=== PATIENT | female | born 1965 | race Caucasian/White ===

== ENCOUNTER 2016-12-19 13:11 | Emergency (ER) | payer BC ==
[2016-12-19 13:35] VITALS: BP 130/83
--- NOTE | 2016-12-19 14:46 | UC ---
Hand/Wrist HPI - HPI Summary HPI Summary: 51 female presents with complaints of right index finger discomfort, palpable nodule and intermittent numbness/tingling of her 1-3 right digits that has been ongoing for the past month. Patient has a history of a pinched nerve in her neck that caused similar symptoms in her left arm/hand in the past however, she states this has been more frequent and worse. She is right hand dominant and using a computer mouse often throughout her work day. States the numbness/ tingling in her fingers gets worse at night, as it wakes her up from her sleep. The episodes last about a few minutes to an hour. Has tried taking aleve in the past and does get some relief from discomfort. She notices when she uses her index finger more the pain increases. She noticed a palpable bump on her DIP approximately one month ago that is not tender to touch. 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 Similar symptoms in the past but not to this extent. No loss of ROM. Denies chest pain/difficulty breathing. Denies paresthesia of forearm or proximal arm. - History Of Current Complaint Chief Complaint: UCUpperExtremity Stated Complaint: finger pain/numbness Time Seen by Provider: 12/19/16 14:25 Hx Obtained From: Patient Hx Last Menstrual Period: 2003 ?: No Onset/Duration: Sudden Onset Severity Initially: Mild Severity Currently: Mild Pain Intensity: 3 Pain Scale Used: 0-10 Numeric Character Of Pain: Aching Aggravating Factor(s): Movement Alleviating: Rest, Ice, OTC Meds Associated Signs And Symptoms: Positive: Swelling - minimal Related History: Dominant Hand Right - Allergies/Home Medications Allergies/Adverse Reactions: Allergies Allergy/AdvReac Type Severity Reaction Status Date / Time Hydromorphone [From Dilaudid] Allergy Unknown Unknown Verified 12/19/16 13:30 Reaction Details Penicillin G Allergy Unknown Unknown Verified 12/19/16 13:30 Reaction Details Home Medications: Home Medications Fluticasone/Vilanterol MDI(NF) [Breo Ellipta MDI (NF)] 1 puff INH DAILY [History Confirmed 12/19/16] Lansoprazole [Goodsense Lansoprazole] 15 mg PO DAILY 12/19/16 [History Confirmed 12/19/16] PMH/Surg Hx/FS Hx/Imm Hx Endocrine History Of: Reports: Diabetes - po med Denies: Thyroid Disease Cardiovascular History Of: Denies: Cardiac Disorders, Hypertension, Pacemaker/ICD Respiratory History Of: Reports: Asthma Denies: COPD GI/ History Of: Denies: Ulcer Psychological History Of: Reports: Depression Cancer History Of: Denies: Breast Cancer - Surgical History Surgical History: Yes Surgery Procedure, Year, and Place: HYSTERECTOMY, 2003 - Family History Known Family History: Positive: Unknown, Diabetes - Social History Alcohol Use: Occasionally Substance Use Type: None Smoking Status (MU): Never Smoked Tobacco - Immunization History Vaccination Up to Date: Yes Review of Systems Constitutional: Negative Skin: Negative Respiratory: Negative Cardiovascular: Negative Gastrointestinal: Negative, Abdominal Pain Genitourinary: Negative Motor: Negative Neurovascular: Negative Musculoskeletal: Arthralgia, Myalgia - right index Neurological: Negative, Paresthesia - of digits 1-3 right hand intermittently Psychological: Negative All Other Systems Reviewed And Are Negative: Yes Physical Exam Triage Information Reviewed: Yes Appearance: Well-Appearing, No Pain Distress, Well-Nourished Vital Signs: Initial Vital Signs Temp 98 F 12/19/16 13:22 Pulse 94 12/19/16 13:22 Resp 24 12/19/16 13:22 BP 130/83 12/19/16 13:22 Vital Signs Reviewed: Yes Eyes: Positive: Conjunctiva Clear ENT: Positive: Normal ENT inspection, Hearing grossly normal Neck: Positive: Supple, Nontender, No Lymphadenopathy Respiratory: Positive: Chest non-tender, Lungs clear, Normal breath sounds, No respiratory distress, No accessory muscle use Cardiovascular Exam: Normal Cardiovascular: Positive: RRR, No Murmur, Pulses Normal, Brisk Capillary Refill Abdominal Exam: Normal Musculoskeletal: Positive: Strength Intact, ROM Intact, No Edema. Negative: Strength Limited @ Neurological Exam: Normal - sensation intact. pin-point sensation intact. Neurological: Positive: Alert, Muscle Tone Normal, Other: - + Tinel's sign right hand Psychological Exam: Normal Diagnostics - Radiology right index Xray Interpretation: No Acute Changes - no acute osseous injury. if symptoms persist, recommend repeat imaging. a negative report should not preclude or delay the evaluation of a clinically suscpicous palpable abnormality. Radiology Interpretation Completed By: Radiologist Hand/Wrist Course/Dx - Course Course Of Treatment: patient did not want any pain medication at this time as she is currently having an episode of GERD. She had tried using muscle relaxer and steroids with antiinflammatories OTC that have hepled her. Told she should try using cock-up splint on right wrist at night and take anti inflammatories to differnentiate carpal tunnel versus radiculopathy of right shoulder. If anti inflammatories and splint do not help, steroid and muscle relaxer. follow up at appointment with pcp thursday for possible referral and further testing/imaging. aware of worsening signs and symptoms. - Differential Dx/Diagnosis Differential Diagnosis/HQI/PQRI: Carpal Tunnel Syndrome, Contusion, Dislocation , Sprain, Strain, Tendonitis, Tenosynovitis Provider Diagnoses: right index finger pain, intermittent paresthesia of digits 1-3, possible carpal tunnel right hand Discharge - Discharge Plan Condition: Stable Disposition: HOME Prescriptions: Tizanidine HCl 4 mg PO BEDTIME #20 cap predniSONE TAB* [Deltasone TAB*] 20 mg PO DAILY #5 tab Patient Education Materials: Carpal Tunnel Syndrome (ED), Carpal Tunnel Syndrome Exercises (GEN) Referrals: Kiki De Jesus MD [Primary Care Provider] - Additional Instructions: Take prescribed muscle relaxer and steroid to help decrease inflammation and to see if symptoms resolve. Recommend taking OTC Aleve for pain and inflammation daily every 4-6 hours. Rest, ice, and recommend wearing carpal tunnel splint at work and at bedtime. See if symptoms improve. If not or worsening please be sure to seek medical attention promptly. Recommend follow up with pcp for further testing and possible referral.
--- NOTE | 2016-12-19 15:02 | RAD ---
HISTORY: Second digit pain and deformity of the right hand COMPARISONS: None VIEWS: 3, Frontal, lateral, and oblique views of the second digit of the right hand FINDINGS: BONE DENSITY: Normal. BONES: There is no displaced fracture. JOINTS: There is no arthropathy. ALIGNMENT: There is no dislocation. SOFT TISSUES: Unremarkable. OTHER FINDINGS: None. IMPRESSION: NO ACUTE OSSEOUS INJURY. IF SYMPTOMS PERSIST, RECOMMEND REPEAT IMAGING. A NEGATIVE REPORT SHOULD NOT PRECLUDE OR DELAY THE EVALUATION OF A CLINICALLY SUSPICIOUS PALPABLE ABNORMALITY
== END 2016-12-19 15:29 | disposition home or self-care (01) ==
LOC: UCCORT 13:11
DX: M79.644 Pain in right finger(s) (principal); R20.0 Anesthesia of skin; K21.9 Gastro-esophageal reflux disease without esophagitis; E11.9 Type 2 diabetes mellitus without complications; Z88.5 Allergy status to narcotic agent; Z88.0 Allergy status to penicillin
CPT/HCPCS: 73140; 99213; G0463

== ENCOUNTER 2017-04-30 07:26 | Day surgery (SDC) | payer BC ==
[2017-04-30] MEDS ORDERED: Sodium Bicarbonate 8.4%* 50 ML SYRINGE ONE (08:10)
[2017-04-30] MEDS ORDERED: Lidocaine 1.5% EPI 1:200,000* 30 ML SDV ONE (08:10)
[2017-04-30] MEDS ORDERED: Bupivacaine 0.25% SDV* 30 ML ONE (09:44)
[2017-04-30 10:18] VITALS: BP 127/69
--- NOTE | 2017-04-30 10:23 | OP ---
DATE OF OPERATION: 04/30/2017 [facility] DATE OF : 1965. SURGEON: Dr. Rell Pace. APPAREL DESIGNER: KARTIK Vicente. ANESTHESIOLOGIST: None. ANESTHESIA: Local with 1.5% Lidocaine with Epinephrine and Bicarbonate. PRE-OP DIAGNOSIS: Right carpal tunnel syndrome. POST-OP DIAGNOSIS: Right carpal tunnel syndrome. OPERATIVE PROCEDURE: Right open carpal tunnel release. INDICATIONS: Pebbles has had progressive symptoms related to right carpal tunnel syndrome. This was confirmed electrodiagnostically. We talked about risks and benefits of surgery. She elected to proceed. ESTIMATED BLOOD LOSS: 5 ml. COMPLICATIONS: None. FINDINGS: As expected. DESCRIPTION OF PROCEDURE: Pebbles was seen in the preoperative holding area. The correct site, side, and procedure were identified. We had a time-out and then I anesthetized the operative area with the local anesthetic. We waited a period of time and then we came back to the operating room where the arm was prepped and draped in the usual fashion. A formal time-out was performed. I began by making a standard, 2 to 3 cm, longitudinal incision in the normal location for an open carpal tunnel release. The dissection was carried down through the subcutaneous tissue and palmar fascia to expose the transverse carpal ligament. This was released just off the radial aspect of the hook of the hamate, starting distally and working proximally. Once I got to the proximal aspect of my incision, I released the fascia and the subcutaneous tissue and retracted this volarly and ulnarly. I then release a little bit more of the transverse carpal ligament with the 15 blade and then the remainder of the transverse carpal ligament was released under direct visualization with the tenotomy scissors just off the ulnar aspect of the palmar's longest tendon. The decompression was checked proximally. It was nicely released and when distally released a couple more bands and once I was confident there was absolutely no compression on the nerve, I went ahead and inspected the nerve. It looked flattened with a slight purple color to it. The wound was irrigated and the skin was closed with 4-0 nylon suture and 0.25% plain Marcaine was infiltrated into the operative area. The wound was dressed with Xeroform, 4x4, sterile Webril, and an Lupillo bandage. She was then taken to the recovery room in stable condition. [id number]/[facility] #: [id number] KARL
== END 2017-04-30 10:15 | disposition home or self-care (01) ==
LOC: OREAST 07:26
PROVIDERS: ATTEND Orthopaedic Surgery Hand Surgery
DX: G56.01 Carpal tunnel syndrome, right upper limb (principal); E11.9 Type 2 diabetes mellitus without complications; Z79.84 Long term (current) use of oral hypoglycemic drugs

== ENCOUNTER 2017-09-16 15:00 | Emergency (ER) | payer BC ==
--- NOTE | 2017-09-16 15:08 | UC ---
Abdominal Pain Female HPI - HPI Summary HPI Summary: 51 year old male presents with left sided chest pain. - History of Current Complaint Chief Complaint: UCAbdominalPain Stated Complaint: UPPER ABDOMINAL PAIN Time Seen by Provider: 09/16/17 15:08 Hx Obtained From: Patient Hx Last Menstrual Period: 2003 Onset/Duration: Sudden Onset Severity Initially: Moderate Severity Currently: Moderate Pain Scale Used: 0-10 Numeric - 5 Location: Discrete At: LUQ Character: Burning, Sharp Aggravating Factor(s): Nothing Alleviating Factor(s): Nothing Associated Signs and Symptoms: Positive: Negative Allergies/Adverse Reactions: Allergies Allergy/AdvReac Type Severity Reaction Status Date / Time Hydromorphone [From Dilaudid] Allergy Unknown Unknown Verified 09/16/17 15:06 Reaction Details Penicillin G Allergy Unknown Unknown Verified 09/16/17 15:06 Reaction Details Home Medications: Home Medications Pantoprazole Sodium [Protonix] 20 mg PO DAILY 09/16/17 [History Confirmed ] PMH/Surg Hx/FS Hx/Imm Hx Previously Healthy: Yes - Surgical History Surgical History: Yes Surgery Procedure, Year, and Place: HYSTERECTOMY, 2003 - Family History Known Family History: Positive: Unknown, Diabetes - Social History Alcohol Use: Occasionally Substance Use Type: None Smoking Status (MU): Never Smoked Tobacco - Immunization History Vaccination Up to Date: Yes Review of Systems Constitutional: Negative Skin: Negative Eyes: Negative ENT: Negative Respiratory: Negative Cardiovascular: Chest Pain Gastrointestinal: Abdominal Pain Genitourinary: Negative Motor: Negative Neurovascular: Negative Musculoskeletal: Negative Neurological: Negative Psychological: Negative All Other Systems Reviewed And Are Negative: Yes Physical Exam Triage Information Reviewed: Yes Vital Signs: Initial Vital Signs Temp 36.4 C 09/16/17 15:02 Pulse 81 09/16/17 15:02 Resp 18 09/16/17 15:02 BP 151/98 09/16/17 15:02 Pulse Ox 100 09/16/17 15:02 Vital Signs Reviewed: Yes Eye Exam: Normal ENT Exam: Normal Dental Exam: Normal Neck exam: Normal Neck: Positive: 1 Respiratory Exam: Normal Cardiovascular Exam: Normal Abdomen Description: Positive: Other: - epigastric pain Musculoskeletal Exam: Normal Neurological Exam: Normal Psychological Exam: Normal Skin Exam: Normal Abd Pain Female Course/Dx - Differential Dx/Diagnosis Provider Diagnoses: left sided chest pain. epigastric pain Discharge - Discharge Plan Condition: Stable Disposition: OTHER Discharge Disposition Comment: patient suggested to go to the er Patient Education Materials: Chest Pain (ED) Referrals: Kiki De Jesus MD [Primary Care Provider] - Additional Instructions: patient suggested to go to the er for left sided chest pain
[2017-09-16 15:23] VITALS: BP 144/85
== END 2017-09-16 15:33 ==
LOC: UCCORT 15:00
DX: R07.9 Chest pain, unspecified (principal); R10.13 Epigastric pain; Z72.89 Other problems related to lifestyle
CPT/HCPCS: 93005; 99212; G0463

== ENCOUNTER 2017-10-01 10:51 | Emergency (ER) | payer BC ==
--- NOTE | 2017-10-01 11:11 | UC ---
Respiratory Complaint HPI - HPI Summary HPI Summary: 52 year old female with cough. For the past week or more has had cough and chest congestion. No fever. Cough productive in the AM and clears up throughout the day. DM-2 and BS stable. No CP or PRESSLEY. Has had GERD and now on PPI and awaiting endoscopy . No n/v/d. Has had sinus pressure in the frontal and maxillary sinuses as well as ear pressure and some sore throat. Developed hoarse voice 4 days ago. Was getting better about 3 days ago and now worsening. Not sleeping from the cough. Has history of asthma and using Breo and prn GILMA. - History of Current Complaint Chief Complaint: UCGeneralIllness Stated Complaint: COUGH Time Seen by Provider: 10/01/17 11:07 Hx Obtained From: Patient Hx Last Menstrual Period: 2003 Onset/Duration: Gradual Onset Timing: Constant Severity Initially: Moderate Character: Cough: Productive - in AM Alleviating Factors: Bronchodilator Associated Signs And Symptoms: Positive: Sinus Discomfort - Allergies/Home Medications Allergies/Adverse Reactions: Allergies Allergy/AdvReac Type Severity Reaction Status Date / Time Hydromorphone [From Dilaudid] Allergy Unknown Unknown Verified 10/01/17 11:01 Reaction Details Penicillin G Allergy Unknown Unknown Verified 10/01/17 11:01 Reaction Details PMH/Surg Hx/FS Hx/Imm Hx Previously Healthy: Yes Endocrine History: Diabetes Respiratory History: Asthma GI/ History: Gastroesophageal Reflux Psychological History: Anxiety, Depression - Surgical History Surgical History: Yes Surgery Procedure, Year, and Place: HYSTERECTOMY, 2003 - Family History Known Family History: Positive: Diabetes - Social History Occupation: Employed Full-time Alcohol Use: Occasionally Substance Use Type: None Smoking Status (MU): Never Smoked Tobacco - Immunization History Vaccination Up to Date: Yes Review of Systems Constitutional: Fatigue ENT: Sore Throat, Ear Ache, Nasal Discharge, Sinus Pain/Tenderness Respiratory: Cough Is Patient Immunocompromised?: No All Other Systems Reviewed And Are Negative: Yes Physical Exam Triage Information Reviewed: Yes Appearance: Well-Appearing, No Pain Distress, Well-Nourished Vital Signs: Initial Vital Signs Temp 96.4 F 10/01/17 10:55 Pulse 91 10/01/17 10:55 Resp 16 10/01/17 10:55 BP 132/92 10/01/17 10:55 Pulse Ox 99 10/01/17 10:55 Vital Signs Reviewed: Yes Eye Exam: Normal ENT Exam: Normal ENT: Positive: Nasal congestion, Sinus tenderness Dental Exam: Normal Neck exam: Normal Neck: Positive: 1 Respiratory Exam: Normal Cardiovascular Exam: Normal Musculoskeletal Exam: Normal Neurological Exam: Normal Psychological Exam: Normal Skin Exam: Normal UC Diagnostic Evaluation - Laboratory O2 Sat by Pulse Oximetry: 99 Respiratory Course/Dx - Course Course Of Treatment: URI -- treat supportively and if sx persist or worsen then start antibiotics. pt aware and agree to plan. Reference #: [id number] - Differential Dx/Diagnosis Differential Diagnosis/HQI/PQRI: Bronchitis, Lower Resp Infection, Sinusitis Provider Diagnoses: URI Discharge - Discharge Plan Condition: Good Disposition: HOME Prescriptions: Benzonatate [Benzonatate 200 MG] 200 mg PO TID #20 cap Cefdinir [Cefdinir 300 MG CAP] 300 mg PO BID #20 cap Guaifenesin-Codeine [Cheratussin AC] 5 ml PO Q8HR PRN #120 ml MDD 15 ml PRN Reason: cough Patient Education Materials: Upper Respiratory Infection (ED) Referrals: Kiki De Jesus MD [Primary Care Provider] - 4 Days (if needed ) Additional Instructions: As we discussed your symptoms appear viral at this time. Continue with supportive care and we have prescribed cough medication as well. If your symptoms worsen over the next few days with your sinus pressure or worsened cough then you are advised to start the antibiotic .
[2017-10-01 11:46] VITALS: BP 132/92
== END 2017-10-01 11:37 | disposition home or self-care (01) ==
LOC: UCCORT 10:51
DX: J06.9 Acute upper respiratory infection, unspecified (principal); R53.83 Other fatigue; E11.9 Type 2 diabetes mellitus without complications; J45.909 Unspecified asthma, uncomplicated; K21.9 Gastro-esophageal reflux disease without esophagitis; F41.9 Anxiety disorder, unspecified; F32.9 Major depressive disorder, single episode, unspecified; Z90.710 Acquired absence of both cervix and uterus; Z88.5 Allergy status to narcotic agent; Z88.0 Allergy status to penicillin
CPT/HCPCS: 99212; G0463

== ENCOUNTER 2018-02-23 06:50 | Observation (INO) | payer BC ==
--- NOTE | 2018-02-18 21:03 | HP ---
CC: Barney Morris; Hugo Art MD * ADMISSION HISTORY AND PHYSICAL: DATE OF ADMISSION: 02/23/18 ATTENDING SURGEON: Girma Crenshaw MD * (KARTIK Conway dictating). CHIEF COMPLAINT: Hiatal hernia. HISTORY OF PRESENT ILLNESS: This is a 52-year-old female with at least a 5- year history of known hiatal hernia. She is initially fairly symptom-free with little to no reflux symptoms until about a year or 2 ago when she began to experience occasional bloating with gas-like sensation and/or nausea or vomiting. The pressure would be relieved when she was able to burp and/or vomit and her symptoms would resolve. Lately, this has occurred as often as 3 to 4 times per month. An EGD was done by Dr. Art on 12/07/17 showing a large hiatal hernia (increased in size from previous EGD). This was followed by an upper GI study on 01/26/18 showing majority of the stomach in the thoracic cavity with the antrum above the diaphragm. The patient was seen by Dr. Crenshaw on 01/28/18. He has reviewed her history and studies and felt that surgery was indicated. The patient understands the indications, risks, benefits , and alternatives and would like to proceed as scheduled with repair of hiatal hernia with fundoplication. The patient understands the expected perioperative course. In addition, because of some known history of hepatic cystic disease, an ultrasound was performed on 02/10/18 showing multiple hepatic cysts as well as a small hemangioma. In addition, she was found to have gallstones, but no signs of acute cholecystitis. There is no plan at the present time for cholecystectomy. PAST MEDICAL HISTORY: Asthma, seasonal allergies, depression, anxiety, type 2 diabetes, hyperlipidemia. PAST SURGICAL HISTORY: Previous surgeries include a subtotal abdominal hysterectomy (for fibroid disease; she still has her ovaries), which was complicated by postoperative bleeding requiring return to the operating room and transfusion of 2 units. She has had prior D and Cs and in the past year, underwent right carpal tunnel release with no associated problems. CURRENT MEDICATIONS: 1. Breo 100/25 one puff once daily. 2. Fluticasone nasal spray 1 spray each nostril once daily. 3. ProAir HFA MDI 2 puffs p.r.n. 4. Chlorpheniramine 4 mg once daily p.r.n. 5. Pantoprazole 40 mg once daily. 6. Bupropion 75 mg and 150 mg (total of 225 mg) once daily. 7. Metformin 500 mg b.i.d. 8. Simvastatin 40 mg once daily. 9. Fluoxetine 20 mg once daily. 10. Vitamin D3 2000 International Units once daily. 11. Multivitamin once daily. 12. Naproxen [id number] 2 tablets p.r.n. for headache or joint pain ( uses infrequently.) ALLERGIES: DILAUDID (nausea and vomiting), AMOXICILLIN (itchy feet). FAMILY HISTORY: Positive for hiatal hernias in multiple family members. There is also a strong history of diabetes. There is no known family history of anesthesia problems, bleeding, or clotting disorders. SOCIAL HISTORY: The patient lives with her significant other. 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 She denies use of tobacco. She drinks on average 3 to 4 drinks per week. She denies other recreational drug use. REVIEW OF SYSTEMS: General: No recent constitutional symptoms or acute illnesses. Weight has been stable. Eyes: No recent changes reported. Ears, Nose, Throat: No problems reported. Cardiovascular: No chest pain, palpitations, history of heart murmur. No history of hypertension. Respiratory : No recent exacerbations of her baseline symptoms. She does note occasional difficulty taking a deep or full breath. GI: As above per HPI. No lower GI symptoms. She did undergo colonoscopy in conjunction with a recent EGD with removal of a single colon polyp and recommended followup in 5 years. : No problems reported. RESTORATION ECOLOGIST: She is due for her annual mammogram and also undergoes annual breast exam. No other problems reported. She is status post hysterectomy. She still has her cervix. Endocrine: Type 2 diabetes. Her most recent A1c was 6.5. No thyroid dysfunction. Musculoskeletal: No specific problems reported. Neuro/Psych: History of depression and anxiety. No additions. PHYSICAL EXAMINATION GENERAL: Well-nourished, well-developed female, in no acute distress. VITAL SIGNS: Height 5 feet 5 inches, weight 165 pounds. Other vital signs per nursing. HEENT: Pupils are equal and round, reactive. EOMs intact. No conjunctival pallor. Oropharynx: Teeth in good repair. No intraoral lesions. NECK: No lymphadenopathy, thyromegaly, or masses. LUNGS: Clear to auscultation. No rales or wheezes. HEART: Regular rate and rhythm. No murmur noted. BREASTS: Not examined. ABDOMEN: Pfannenstiel incision from prior surgery. Abdomen is soft, nontender to palpation. No palpable masses or organomegaly. GENITALIA: Not done. RECTAL: Not done. BACK: No spinous process or CVA tenderness. EXTREMITIES: No edema. NEUROLOGICAL: Grossly intact. SKIN: Warm and dry. No suspicious rashes or lesions. IMPRESSION: Hiatal hernia. PLAN: Laparoscopic repair, hiatal hernia with fundoplication. KARTIK CONWAY [id number]/[facility] #: [id number] MTDD
[~2018-02-23 06:50] MED LIST: Buffered Lidocaine 0.9% SYRIN* 5 ML/SYR SYRINGE INTRADERM ONE
[2018-02-23] MEDS ORDERED: ceFAZolin 2 GM PREMIX (*) 2 GM/50 ML BAG IVPB ONE (07:11)
[2018-02-23] MEDS ORDERED: Heparin VIAL(*) 5000 UNITS/ML VIAL (FIVE THOUSAND) ONE (07:19)
[2018-02-23] MEDS ORDERED: Bupivacaine 0.25% SDV* 30 ML ONE (08:27)
[2018-02-23] MEDS ORDERED: Scopolamine 1.5 mg* PATCH ONE ×2 (08:28→08:34)
[2018-02-23] MEDS ORDERED: fentaNYL* 50 MCG/ML 2 ML VIAL (100 MCG VIAL) ONE ×3 (08:44→12:45)
[2018-02-23] MEDS ORDERED: Dexamethasone IV* 4 MG/ML 1 ML (4 MG) ONE (08:45)
[2018-02-23] MEDS ORDERED: Rocuronium* 10 MG/ML VIAL ONE (08:45)
[2018-02-23] MEDS ORDERED: Propofol* 10 MG/ML 20 ML BTL IV PUSH ONE (08:45)
[2018-02-23] MEDS ORDERED: Lidocaine 2% PF * 5 ML VIAL ONE (08:45)
[2018-02-23] MEDS ORDERED: IVPREMIX ONE (08:47)
[2018-02-23] MEDS ORDERED: CLINDAMYCIN 600 MG ONE (08:47)
[2018-02-23] MEDS ORDERED: Atropine 1MG/ML INJ* 1 ML VIAL ONE (11:29)
[2018-02-23] MEDS ORDERED: Neostigmine Methylsulfate* 1 MG/ML 10 ML VIAL (1 mg/ml) ONE (11:29)
--- NOTE | 2018-02-23 11:30 | OP ---
Operative Report - Blank - Operative Report Date of Operation: 02/23/18 Note: Preop Dx: Hiatal Hernia Postop Dx: same Procedure: Laparoscopic repair hiatal hernia w/ fundoplication Anesthesia: GET ([facility]) Surgeon: Den Asst: Dirk; KARTIK Farr; SABRA De Santiago Fluids: 1800 ml RL EBL: < 50 ml Drains: none Specimen: none Findings: dictated
[2018-02-23] MEDS ORDERED: Albuterol HFA INHALER* 8 gm MDI INH PRN (11:36)
[2018-02-23] MEDS ORDERED: Acetaminophen ADULT LIQ* 650 MG/20.3 ML UDC PO PRN (11:41)
[2018-02-23] MEDS ORDERED: Morphine INJ* 10 MG/ML 1 ML CARPUJECT IV PRN (11:42)
[2018-02-23] MEDS ORDERED: Morphine INJ* 4 MG/ML 1 ML CARPUJECT IV PRN (11:42)
[2018-02-23] MEDS ORDERED: Ketorolac INJ* 30 MG/ML 1 ML VIAL IV PUSH PRN (11:42)
[2018-02-23] MEDS ORDERED: Ondansetron ODT TAB* 4 MG SL PRN (11:44)
[2018-02-23] MEDS ORDERED: fentaNYL* 50 MCG/ML 2 ML VIAL (100 MCG VIAL) IV PRN (11:51)
[2018-02-23] MEDS ORDERED: Acetaminophen TAB* 325 MG PO PRN (11:51)
[2018-02-23] MEDS ORDERED: DiMENhydriNATE IV* 50 MG/ML VIAL IV PUSH PRN (11:51)
[2018-02-23] MEDS ORDERED: Ondansetron ODT TAB* 4 MG PO PRN (11:51)
[2018-02-23] MEDS ORDERED: Naloxone* 0.4 MG/ML 1 ML VIAL IV PRN (11:51)
[2018-02-23] MEDS ORDERED: DiMENhydriNATE IV* 50 MG/ML VIAL ONE (11:57)
[2018-02-23] MEDS ORDERED: Insulin LISPRO* 1 UNITS UNIT SUBCUT ONE (12:39)
--- NOTE | 2018-02-23 12:45 | RAD ---
HISTORY: [Continue to appear, hypoxia COMPARISONS: January 23, 2012 VIEWS: 2: frontal portable view of the chest at 12:00 PM FINDINGS: LINES AND TUBES: None. CARDIOMEDIASTINAL SILHOUETTE: There is no pneumomediastinum.. PLEURA: There is a small left apical pneumothorax. LUNG PARENCHYMA: The lungs are clear. ABDOMEN: The upper abdomen is clear. There is no subphrenic gas. BONES AND SOFT TISSUES: There is extensive subcutaneous emphysema. IMPRESSION: SMALL LEFT APICAL PNEUMOTHORAX. PNEUMOMEDIASTINUM. EXTENSIVE SUBCUTANEOUS EMPHYSEMA. PRELIMINARY FINDINGS WERE DISCUSSED WITH THE NURSE CARING FOR THE PATIENT IN THE RECOVERY ROOM AT APPROXIMATELY 12:41 PM ON FEBRUARY 23, 2018.
[2018-02-23] MEDS ORDERED: EPHEDrine (Pressors)* 50 MG/ML VIAL ONE (13:22)
[2018-02-23] MEDS ORDERED: Ketorolac INJ* 30 MG/ML 1 ML VIAL ONE (14:36)
--- NOTE | 2018-02-23 15:46 | RAD ---
HISTORY: Follow-up left pneumothorax COMPARISONS: February 23, 2018 at 11:57 AM VIEWS: 1: frontal portable view of the chest at 3:34 PM FINDINGS: LINES AND TUBES: None. CARDIOMEDIASTINAL SILHOUETTE: The pneumomediastinum noted on the previous examination is no longer evident. PLEURA: The left apical pneumothorax noted on the previous examination is no longer evident. LUNG PARENCHYMA: There is a nodular density of the left lung base measuring 1.2 cm near the costophrenic angle. ABDOMEN: The upper abdomen is clear. There is no subphrenic gas. BONES AND SOFT TISSUES: There is persistent but decreased subcutaneous emphysema. IMPRESSION: 1. THE LEFT APICAL PNEUMOTHORAX IS NO LONGER EVIDENT. 2. THE PNEUMOMEDIASTINUM IS NO LONGER EVIDENT. 3. THERE IS PERSISTENT BUT DECREASED SUBCUTANEOUS EMPHYSEMA. 4. THERE IS A NODULE OF THE LEFT LUNG BASE. RECOMMEND ATTENTION ON FOLLOW-UP IMAGING, AND CONSIDERATION OF CT OF THE CHEST IN THE NONACUTE SETTING.
--- NOTE | 2018-02-23 15:56 | PN ---
Progress Note - Progress Note Date of Service: 02/23/18 Note: Postop Note She feels well except for bilateral shoulder pain. I discussed the concern for PTX and the CXR done in the RR. She denies SOB, CP. Vital Signs Temp 99.0 F 02/23/18 13:45 Pulse 70 02/23/18 13:45 Resp 26 02/23/18 13:48 BP 115/75 02/23/18 13:45 Pulse Ox 97 02/23/18 13:45 Gen: NAD Chest: +equal BS bilat; subcutaneous crepitus noted. Intake & Output 02/22/18 02/23/18 02/23/18 18:59 06:59 18:59 Intake Total 1950 Output Total 1100 Balance 850 Weight 172 lb Intake: IV Fluids 1950 ANCEF 2 GMS 50 LR 1900 Output: Urine 400 Kaminski 600 Estimated Blood Loss 100 Other: # Voids 1 portable CXR shows improved PTX and subcutaneous emphysema. A/P: s/p lap PEHR. Resolving carbothorax. Continue observation. Likely home in AM.
[2018-02-23] MEDS: Morphine VIAL* 4 MG/ML VIAL (1 ml vial) IV PRN ×3 (16:10→21:46)
[2018-02-24] MEDS: Morphine VIAL* 4 MG/ML VIAL (1 ml vial) IV PRN ×2 (01:57→05:43)
[2018-02-24 08:15] VITALS: BP 117/63
[2018-02-24] MEDS ORDERED: Fluticasone NASAL SPRAY 50MCG* 16 gm SPRAY BTL BOTH NARES SCH (09:00)
[2018-02-24] MEDS ORDERED: Fluticasone/Vilanterol MDI(NF) 100/25 MDI INH SCH (09:00)
--- NOTE | 2018-02-24 09:01 | PN ---
Progress Note - Progress Note Date of Service: 02/24/18 SOAP: Subjective: []Pt seen and examined at bedside. Pt s/p laparoscopic hiatal hernia repair with fundoplication complicated by small carbothorax. Pt reports she is "doing well." Slept well throughout the night. Received morphine PRN overnight for bilateral shoulder pain. Reports 4/10 supraumbilical pain that is controlled with Toradol (last dose @ 0818 02/24) and Morphine (last dose @0543 02/24). Reports pain with deep inspiration. Reports mild abdominal distention. Reports flatus. Denies N/V/D. No BMs as of yet. Patient is wearing scopolamine patch. Is tolerating sips of water. Would like to try more clears (apple juice). Denies chest pain or SOB. Reports using incentive spirometry when she can. Pt was able to ambulate 3x around unit yesterday. Voiding regularly. No dysuria or hematuria. Denies calf pain or swelling. Objective: [] Vital Signs 02/24/18 02/24/18 02/24/18 01:57 03:00 04:07 Temperature 99.4 F Pulse Rate 78 Respiratory 16 16 14 Rate Blood Pressure 116/69 (mmHg) O2 Sat by Pulse 95 Oximetry 02/24/18 02/24/18 02/24/18 05:43 06:38 07:11 Temperature 98.1 F Pulse Rate 71 Respiratory 16 14 17 Rate Blood Pressure 117/63 (mmHg) O2 Sat by Pulse 97 Oximetry 02/24/18 02/24/18 08:00 08:14 Temperature Pulse Rate Respiratory 17 Rate Blood Pressure (mmHg) O2 Sat by Pulse 94 94 Oximetry Const: Well apearing female resting comfortably supine in bed. Pt is in NAD. HEENT: Minimal periorbital edema (improved from yesterday 02/23). EOMs grossly intact. Lungs: Respirations are non labored. Symmetric chest expansion. Faint rales in RLL. Remaining lungs are CTA. Heart: RRR. Regular S1. Regular S2. No murmurs/rubs/gallop. Chest: Subcutaneous crepitus no longer present on anterior chest wall. Crepitus noted along the shoulders bilaterally. Ext: Warm. No swelling. 2+ dorsalis pedis pulses. Assessment: []S/p laparoscopic hiatal hernia repair c/ fundoplication complicated by small carbothorax. Pt doing well. Carbothorax is improving as shown on portable CXR 02/23/18. Pt is afebrile. No SOB/CP. VSS. Plan: [Okay to advance diet to clear liquids. Encouraged ambulation and incentive spirometry. Continue observation. If patient does well with clear liquids okay to go home today. Discussed findings/plan with patient at bedside. Discussed with Dr. Crenshaw.
[2018-02-24] MEDS ORDERED: HYDROcodone/ACET. 7.5/325 LIQ* 15 ML UDC PO PRN (09:20)
--- NOTE | 2018-02-24 12:13 | OP ---
CC: Hugo Art MD; Kiki De Jesus MD * DATE OF OPERATION: 02/23/18 - ROOM #331 DATE OF : 65 SURGEON: Girma Crenshaw MD ASSISTANTS: Lester Cavazos MD; KARTIK Conway ANESTHESIOLOGIST: Luis Alberto Brito MD ANESTHESIA: General endotracheal. PRE-OP DIAGNOSIS: Paraesophageal hernia. POST-OP DIAGNOSIS: Paraesophageal hernia. OPERATIVE PROCEDURE: Laparoscopic repair of paraesophageal hernia with Lupe fundoplication. ESTIMATED BLOOD LOSS: Less than 50 mL. IV FLUIDS: Crystalloids. SPECIMEN: None. DRAINS: None. COMPLICATIONS: None. COUNTS: The instrument, needle, and sponge counts were correct. DESCRIPTION OF PROCEDURE: The patient was brought to the operating room and placed on the table supine. Sequential compression devices were placed on both lower extremities. General anesthesia was administered. Kaminski catheter was placed. She was positioned and padded appropriately and then prepped and draped in the usual sterile fashion and she received appropriate intravenous antibiotics. Time-out was performed. Local anesthetic was infiltrated into the skin and soft tissue prior to making each incision and entry to the abdomen was through a transumbilical incision using an open technique. After placing a 5-mm optical trocar, carbon dioxide was insufflated to a pressure of 15 mmHg. Under direct visualization, a 12-mm trocar was placed in the left upper quadrant. The 5-mm trocars were placed in the right upper quadrant and left upper quadrant laterally. A Kash liver retractor was placed percutaneously in the subxiphoid position and used to elevate the left lobe of the liver. The patient was noted to have a large paraesophageal hernia with almost the entirety of the stomach contained within the chest. Dissection proceeded with division of short gastric vessels in order to identify the left gurwinder of the diaphragm. The hernia sac was entered along the left side and dissection proceeded around the hiatus towards the right. Dissection then proceeded from the right side at the pars flaccida using the LigaSure to divide small vessels within this and in order to obtain access to the right gurwinder of the diaphragm. The dissection then proceeded across anteriorly to connect to the initial dissection. Dissection then proceeded in the posterior plane in order to elevate the esophagus. The stomach had been reduced prior to this point. The esophagus was encircled with a 0.25-inch Ellie drain, which was secured with an Endoloop. This was then used to manipulate the esophagus for the remaining portions of the case. The dissection across the posterior portion of the sac remaining enabled better mobilization of the esophagus and a circumferential dissection of the esophagus was taken well up into the mediastinum providing the band of tissue and small vessels with preservation of vagus nerves. Once an appropriate intraabdominal length of the esophagus had been mobilized, the hiatal defect was closed with 0- Ethibond sutures with portions of a polyester carotid patch used to pledget the sutures across the anterior portion and a series of 5 sutures were placed, closing the defect over a 56-Armenian bougie. Subsequently, the fundoplication was performed 360 degrees in a Lupe fashion, again over a 56-Armenian bougie. The wrap was short and floppy with three sutures of 0-Ethibond placed in 1 cm intervals with the uppermost suture incorporating the wall of the esophagus. The bougie was removed and the hemostasis was assured. The ports were removed under direct visualization as was the Kash liver retractor. The umbilical wound was closed with 0-Vicryl to approximate the fascia. Skin incisions were closed with 4-0 Monocryl and Steri-Strips were applied. The patient tolerated the procedure well. At the end of the procedure, the anesthesiologist did note that there were decreased breath sounds on the left side; however, after pulling the endotracheal tube back a short distance, the breath sounds did return. The patient subsequently was extubated uneventfully and then transferred to the recovery room in stable condition. [id number]/[facility] #: [id number] KARL
== END 2018-02-24 11:30 | disposition home or self-care (01) ==
LOC: OR 06:50 → SSU 13:42 → UNDODISOB 02-24 11:30
PROVIDERS: ADMIT Surgery; ATTEND Surgery
PROC: 0DV44ZZ Restriction of Esophagogastric Junction, Percutaneous Endoscopic Approach (ICD-10-PCS; 2018-02-23)
PROC: 0BQT4ZZ Repair Diaphragm, Percutaneous Endoscopic Approach (ICD-10-PCS; principal; 2018-02-23 08:45)
DX: K44.9 Diaphragmatic hernia without obstruction or gangrene (principal); J45.909 Unspecified asthma, uncomplicated; E78.5 Hyperlipidemia, unspecified; E11.9 Type 2 diabetes mellitus without complications; F41.9 Anxiety disorder, unspecified; F32.9 Major depressive disorder, single episode, unspecified; Z79.899 Other long term (current) drug therapy; Z88.8 Allergy status to other drugs, medicaments and biological substances
CPT/HCPCS: 71045; 96374; 96375; A9270-GY; G0378; J0461; J0690; J1100; J1240; J1644; J1885; J2270; J2704; J2710; J3010

== ENCOUNTER 2018-08-09 16:21 | Emergency (ER) | payer BC ==
[2018-08-09 16:57] VITALS: BP 145/90
[2018-08-09] MEDS ORDERED: Meclizine TAB* 12.5 MG PO ONE (17:14)
--- NOTE | 2018-08-09 17:23 | UC ---
Dizzy HPI HPI Summary: 52-year-old woman comes in with a chief complaint of dizziness. Dizziness started yesterday morning when she first awoke. Dizziness is spinning is worse when she moves her head. During the course of the day dizziness decreased slightly. No difficulty with vision or speech no weakness or numbness. No headache. No upper respiratory tract infection symptoms or sinusitis symptoms. No ear pain. 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 - History Of Current Complaint Chief Complaint: UCGeneralIllness Stated Complaint: DIZZINESS Time Seen by Provider: 08/09/18 17:02 Hx Last Menstrual Period: 2003 Pain Intensity: 0 - Allergies/Home Medications Allergies/Adverse Reactions: Allergies Allergy/AdvReac Type Severity Reaction Status Date / Time hydromorphone [From Dilaudid] Allergy Intermediate Nausea And Verified 08/09/18 16:44 Vomiting penicillin G Allergy Intermediate Rash Verified 08/09/18 16:44 Home Medications: Home Medications Fluticasone/Vilanterol [Breo Ellipta 200-25 Mcg INH] 1 each IH DAILY 08/09/18 [ History Confirmed 08/09/18] Loratadine 10 mg PO DAILY 08/09/18 [History Confirmed 08/09/18] Rosuvastatin Calcium [Crestor] 20 mg PO 08/09/18 [History] PMH/Surg Hx/FS Hx/Imm Hx Previously Healthy: Yes Endocrine History: Diabetes Respiratory History: Asthma - Surgical History Surgical History: Yes Surgery Procedure, Year, and Place: HYSTERECTOMY, 2003. HIATAL HERNIA REPAIR WITH FUNDOPLICATION- 03/08. CARPAL TUNNEL - Family History Known Family History: Positive: Unknown, Diabetes - Social History Alcohol Use: Occasionally Substance Use Type: None Smoking Status (MU): Never Smoked Tobacco Have You Smoked in the Last Year: No - Immunization History Vaccination Up to Date: Yes Review of Systems All Other Systems Reviewed And Are Negative: Yes Constitutional: Positive: Negative Skin: Positive: Negative Eyes: Positive: Negative ENT: Positive: Negative Respiratory: Positive: Negative Cardiovascular: Positive: Negative Gastrointestinal: Positive: Negative Motor: Positive: Negative Neurovascular: Positive: Negative Musculoskeletal: Positive: Negative Neurological: Positive: Other - DIZZINESS Psychological: Positive: Negative Is Patient Immunocompromised?: No Physical Exam Triage Information Reviewed: Yes Appearance: Well-Appearing, No Pain Distress, Well-Nourished Vital Signs: Initial Vital Signs Temp 98 F 08/09/18 16:48 Pulse 89 08/09/18 16:48 Resp 16 08/09/18 16:48 BP 145/90 08/09/18 16:48 Pulse Ox 100 08/09/18 16:48 Vital Signs Reviewed: Yes Eye Exam: Normal Eyes: Positive: Conjunctiva Clear, Other: - NO NYSTAGMUS ENT Exam: Normal ENT: Positive: Normal ENT inspection, Pharynx normal, Pharyngeal erythema, TMs normal. Negative: Nasal congestion, Nasal drainage Neck exam: Normal Neck: Positive: Supple Respiratory: Positive: Lungs clear, Normal breath sounds, No respiratory distress Cardiovascular: Positive: RRR Musculoskeletal Exam: Normal Musculoskeletal: Positive: Strength Intact, ROM Intact Neurological Exam: Normal Neurological: Positive: Alert, Muscle Tone Normal Psychological Exam: Normal Psychological: Positive: Age Appropriate Behavior Skin Exam: Normal Dizzy Course/Dx - Course Course Of Treatment: Order Information: CT BRAIN WO. Accession Number: [id number]. CPT: 83198. HISTORY: DIZZINESS. COMPARISONS: None. TECHNIQUE: Multiple contiguous axial CT scans were obtained of the head without. intravenous contrast. FINDINGS: HEMORRHAGE/INFARCT: There is no hemorrhage or acute infarct. MASSES/SHIFT: There is no mass or shift. EXTRA-AXIAL SPACES: There are no extra-axial fluid collections. SULCI AND VENTRICLES: The sulci and ventricles are normal in size and position for the. patient's stated age. CEREBRUM: There are no focal parenchymal abnormalities. BRAINSTEM: There are no focal parenchymal abnormalities. CEREBELLUM: There are no focal parenchymal abnormalities. VESSELS: The vessels are grossly normal. PARANASAL SINUSES: The paranasal sinuses are clear. ORBITS: The orbits are unremarkable. BONES AND SOFT TISSUE: No bone or soft tissue abnormalities are noted. OTHER: None. IMPRESSION: NO ACUTE INTRACRANIAL PATHOLOGY. . <Electronically signed by Yayo Scruggs MD in [place]> 08/09/18 1174. I discussed the CT results with the patient. Patient has no nystagmus or any focal neurologic deficit on exam. She did have some improvement in her symptoms over the day. We discussed the possibility or ability of posterior circulation cerebellar strokes and there symptoms. At this time this appears to be a peripheral vertigo and will treat with meclizine. Follow-up with primary care doctor if not completely improved. Just going to the emergency department if there is any worsening or persistence of symptoms. - Differential Dx/Diagnosis Provider Diagnoses: DIZZINESS. VERTIGO Discharge - Sign-Out/Discharge Documenting (check all that apply): Patient Departure All imaging exams completed and their final reports reviewed: Yes - Discharge Plan Condition: Stable Disposition: HOME Prescriptions: Meclizine HCl [Motion Sickness Relief] 25 mg PO Q6H PRN #20 tablet PRN Reason: Dizziness Patient Education Materials: Vertigo (ED), Dizziness (ED) Referrals: Kiki De Jesus MD [Primary Care Provider] - Additional Instructions: FOLLOW UP WITH YOUR DOCTOR IF NOT COMPLETELY IMPROVED. TAKE MECLIZINE 25MG EVERY 6 HOURS NEEDED FOR DIZZINESS IF HELPFUL. GO TO THE EMERGENCY DEPARTMENT FOR ANY WORSENING OF YOUR CONDITION; WEAKNESS, NUMBNESS, DIFFICULTY WITH SPEECH OR VISION OR QUESTIONS OR CONCERNS. - Billing Disposition and Condition Condition: STABLE Disposition: Home
== END 2018-08-09 17:55 | disposition home or self-care (01) ==
LOC: UCCORT 16:21
DX: R42 Dizziness and giddiness (principal); E11.9 Type 2 diabetes mellitus without complications; Z88.0 Allergy status to penicillin; Z88.5 Allergy status to narcotic agent
CPT/HCPCS: 70450; 99212; A9270-GY; G0463

== ENCOUNTER 2018-09-27 12:35 | Emergency (ER) | payer BC ==
[2018-09-27] MEDS ORDERED: Ibuprofen TAB* 600 MG PO ONE (12:51)
[2018-09-27 12:54] VITALS: BP 140/77
--- NOTE | 2018-09-27 13:36 | UC ---
Hand/Wrist HPI - HPI Summary HPI Summary: 53-year-old woman comes in with a chief complaint of right hand injury. Yesterday she struck the dorsum of her right hand on a garbage can. She then it accidentally burned IT. The area of the pain is at the third MCP and fourth MCP joints. There is swelling in that area. Pain is worse with palpation and with movement of the fingers. She iced it and that did help decrease the pain. She has full range of motion however when she tries to make a fist it's difficult possibly secondary to the swelling. - History Of Current Complaint Chief Complaint: UCUpperExtremity Stated Complaint: R HAND INJURY Time Seen by Provider: 09/27/18 12:45 Hx Last Menstrual Period: 2003 Pain Intensity: 3 - Allergies/Home Medications Allergies/Adverse Reactions: Allergies Allergy/AdvReac Type Severity Reaction Status Date / Time hydromorphone [From Dilaudid] Allergy Intermediate Nausea And Verified 09/27/18 12:44 Vomiting penicillin G Allergy Intermediate Rash Verified 09/27/18 12:44 PMH/Surg Hx/FS Hx/Imm Hx Previously Healthy: Yes Endocrine History: Diabetes Respiratory History: Asthma - Surgical History Surgical History: Yes Surgery Procedure, Year, and Place: HYSTERECTOMY, 2003. HIATAL HERNIA REPAIR WITH FUNDOPLICATION- 03/08. CARPAL TUNNEL - Family History Known Family History: Positive: Unknown, Diabetes - Social History Alcohol Use: Occasionally Substance Use Type: None Smoking Status (MU): Never Smoked Tobacco Have You Smoked in the Last Year: No - Immunization History Vaccination Up to Date: Yes Review of Systems All Other Systems Reviewed And Are Negative: Yes Constitutional: Positive: Negative Skin: Positive: Other - BURN RT HAND Eyes: Positive: Negative ENT: Positive: Negative Respiratory: Positive: Negative Cardiovascular: Positive: Negative Gastrointestinal: Positive: Negative Motor: Positive: Negative Neurovascular: Positive: Negative Musculoskeletal: Positive: Other: - SEE HPI Neurological: Positive: Negative Psychological: Positive: Negative Is Patient Immunocompromised?: No Physical Exam Triage Information Reviewed: Yes Appearance: Well-Appearing, No Pain Distress, Well-Nourished Vital Signs: Initial Vital Signs Temp 97.6 F 09/27/18 12:47 Pulse 86 09/27/18 12:47 Resp 18 09/27/18 12:47 BP 140/77 09/27/18 12:47 Pulse Ox 98 09/27/18 12:47 Vital Signs Reviewed: Yes Eye Exam: Normal Eyes: Positive: Conjunctiva Clear Neck: Positive: Supple Respiratory: Positive: No respiratory distress Musculoskeletal: Positive: Other: - There is swelling of the dorsum of the right hand over the third and fourth MCPs. Patient is able to make a full fist elbow it feels tight. She was full extension and strength is 5 out of 5 no sensation deficit. Capillary refill is normal. The rest of the fingers and the wrist are nontender WITH FULL range of motion. Neurological Exam: Normal Neurological: Positive: Alert, Muscle Tone Normal Psychological Exam: Normal Skin: Positive: Other - 10 mm x 5 mm first-degree burn on the dorsum of the hand over the third MCP. Hand/Wrist Course/Dx - Course Course Of Treatment: Order Information: HAND - RIGHT MINIMUM 3 VIEWS. Accession Number: [id number]. CPT: 17729. INDICATION: Pain at the right second through fifth metacarpals one day after " hit the. back of her hand on a trash can". COMPARISON: None. TECHNIQUE: 4 views of the right hand were obtained. FINDINGS: The adequately corticated bones are in normal alignment. No significant focal osseous. abnormality or fracture is seen. Joint spaces appear maintained. IMPRESSION: No radiographically apparent fracture or dislocation of the right hand. If the patient's symptoms persist, follow-up imaging is recommended. . <Electronically signed by Robert Cao MD in [place]> 09/27/18 1313. I discussed the x-ray reports with the patient. Plan at this time is anti- inflammatories eyes. Also splint was placed by nursing she was neurovascularly intact after the splint placement. She can use a splint when necessary. If not completely improved she needs to get a reevaluation. - Differential Dx/Diagnosis Provider Diagnosis: Contusion of hand, right Discharge - Sign-Out/Discharge Documenting (check all that apply): Patient Departure All imaging exams completed and their final reports reviewed: Yes - Discharge Plan Condition: Stable Disposition: HOME Patient Education Materials: Hand Sprain (ED), Contusion in Adults (ED) Referrals: Kiki De Jesus MD [Primary Care Provider] - Additional Instructions: FOLLOW UP WITH YOUR DOCTOR IF NOT COMPLETELY IMPROVED. GET RECHECKED FOR ANY WORSENING OF YOUR CONDITION OR QUESTIONS OR CONCERNS. - Billing Disposition and Condition Condition: STABLE Disposition: Home
== END 2018-09-27 13:14 | disposition home or self-care (01) ==
LOC: UCEAST 12:35
DX: S60.221A Contusion of right hand, initial encounter (principal); T23.16 Burn of first degree of back of hand; E11.9 Type 2 diabetes mellitus without complications; J45.909 Unspecified asthma, uncomplicated; Z88.5 Allergy status to narcotic agent; Z88.0 Allergy status to penicillin; W22.8XXA Striking against or struck by other objects, initial encounter; Y92.9 Unspecified place or not applicable
CPT/HCPCS: 99211; A9270-GY; G0463